=== PATIENT | female | born 1980 | race Caucasian/White ===

== ENCOUNTER 2017-04-01 14:23 | Emergency (ER) | payer MEDICAID ==
[~2017-04-01] VITALS: Ht 167.6 cm; Wt 111.1 kg
--- NOTE | 2017-04-01 14:35 | NUR ---
PATIENT PRESENTS TO ER C/O ABDOMINAL PAIN, STATING LAST BM 4 DAYS AGO. PATIENT IS A/OX 4. BREATHING EVEN AND UNLABORED. NO SOB. DENIES N/V/D. PATIENTS VITALS STABLE. SAFETY AND COMFORT MEASURES IN PLACE. AWAITING MD ORDERS.
[2017-04-01] MEDS ORDERED: FAMOTIDINE/PF INJ 20 MG/2 ML VIAL IV ONE ×2 (14:54→15:00)
[2017-04-01] MEDS ORDERED: MORPHINE SULFATE INJ 4 MG/ML DISP.SYRIN ONE (14:54)
[2017-04-01] MEDS ORDERED: ONDANSETRON HCL/PF 4 MG/2 ML VIAL ONE (14:54)
[2017-04-01] MEDS ORDERED: MORPHINE SULFATE INJ 2 MG/ML DISP.SYRIN IV ONE (15:00)
[2017-04-01] MEDS ORDERED: IV NS 0.9% 1,000 ML BAG IV ONE (15:00)
[2017-04-01] MEDS ORDERED: ONDANSETRON HCL/PF 4 MG/2 ML VIAL IVP ONE (15:00)
[2017-04-01 15:01] LABS: BASOPHILS % (AUTO) 0.4 % (0.0-2.0); EOSINOPHILS # (AUTO) 0.3 /CMM (0.0-0.7); EOSINOPHILS % (AUTO) 4.1 % (0.0-6.0); HEMATOCRIT 38 % (33-45); HEMOGLOBIN 12.8 g/dL (11.5-14.8); LYMPHOCYTES % (AUTO) 26.3 % (20.0-44.0); MEAN CORPUSCULAR HEMOGLOBIN 29 PG (26.0-33.0); MEAN CORPUSCULAR HGB CONC 33 g/dl (31.0-36.0); MEAN CORPUSCULAR VOLUME 85 fL (82-100); MONOCYTES # (AUTO) 0.4 /CMM (0.1-1.30); MONOCYTES % (AUTO) 5.3 % (2.0-12.0); NEUTROPHILS # (AUTO) 4.9 /CMM (1.8-8.9); NEUTROPHILS % (AUTO) 63.9 % (43.0-81.0); PLATELET COUNT (AUTO) 321 /CMM (150-450); RDW COEFFICIENT OF VARIATION 13.7 (11.5-15.0); RED BLOOD CELL COUNT(AUTO) 4.48 MIL/uL (4.0-5.2); WHITE BLOOD COUNT (AUTO) 7.6 K/uL (4.3-11.0)
--- NOTE | 2017-04-01 15:04 | NUR ---
NEW IV STARTED ON RAC, 20 G. BLOOD DRAWN AND SENT TO LAB. PATIENT MEDICATED PER MD ORDERS.
[2017-04-01 15:10] LABS: CALCIUM, SERUM 8.1 mg/dL (8.5-10.1); CREATININE 0.7 mg/dL (0.6-1.3); POTASSIUM 3.9 mmol/L (3.5-5.1)
[2017-04-01 15:16] LABS: ALBUMIN 3.2 g/dL (3.4-5.0); BILIRUBIN,DIRECT 0.1 mg/dL (0.0-0.2); BILIRUBIN,TOTAL 0.4 mg/dL (0.2-1.0); TOTAL PROTEIN, SERUM 6.9 g/dL (6.4-8.2)
--- NOTE | 2017-04-01 15:30 | NUR ---
PATIENT TAKEN TO CT VIA WHEELCHAIR.
--- NOTE | 2017-04-01 15:40 | NUR ---
PATIENT RETURNED FROM CT.
--- NOTE | 2017-04-01 16:23 | NUR ---
US TECH AT BEDSIDE.
--- NOTE | 2017-04-01 17:30 | NUR ---
IV removed from rac. Patient discharged to home in stable condition. Written and verbal after care instructions given. Patient verbalizes understanding of instruction.
[2017-04-01 17:39] VITALS: BP 128/68
== END 2017-04-01 17:30 | disposition home or self-care (01) ==
LOC: ER 14:25
DX: K80.50 Calculus of bile duct without cholangitis or cholecystitis without obstruction (principal); K42.9 Umbilical hernia without obstruction or gangrene; K57.30 Diverticulosis of large intestine without perforation or abscess without bleeding; K59.00 Constipation, unspecified; K80.20 Calculus of gallbladder without cholecystitis without obstruction
CPT/HCPCS: 36415; 74176; 76705; 80048; 80076; 83690; 84702; 85025; 96361; 96374; 96375; 99285; A4606; J2270; J2405; J3490; J7030; Z7610; 71250-TC

== ENCOUNTER 2017-08-04 21:59 | Emergency (ER) | payer MEDICAID, OTHER ==
[~2017-08-04] VITALS: Ht 165.1 cm; Wt 113.4 kg
[2017-08-04] MEDS ORDERED: ACETAMINOPHEN ES 500 MG TABLET ONE (22:35)
[2017-08-04] MEDS ORDERED: IBUPROFEN 600 MG TABLET PO ONE ×2 (22:35→23:00)
[2017-08-04] MEDS ORDERED: ACETAMINOPHEN ES 500 MG TABLET PO ONE (23:00)
--- NOTE | 2017-08-04 23:24 | NUR ---
PT AMBULATORY TO ER BED 8. PT BIB FRIEND FROM HOME C/O "FLU LIKE SYMPTOMS" X 2 DAYS. 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 VSS/RESP EVEN UNLABORED/NAD NOTED/SKIN WARM AND DRY/DENIES N-V-D/AOX4. AWAITING MD ALICEA.
--- NOTE | 2017-08-04 23:53 | NUR ---
LUX VENTURA OBTAINED AND SENT TO THE LAB.
[2017-08-05 01:21] VITALS: BP 111/51
--- NOTE | 2017-08-05 01:21 | NUR ---
Patient discharged to home in stable condition. Written and verbal after care instructions given. Patient verbalizes understanding of instruction. Patient ambulatory with a steady gait.
== END 2017-08-05 01:22 | disposition home or self-care (01) ==
LOC: ER 22:04
DX: J10.1 Influenza due to other identified influenza virus with other respiratory manifestations (principal)
CPT/HCPCS: 71045-TC; 87400; A4606; Z7610